=== PATIENT | male | born 2000 | race Caucasian/White ===

== ENCOUNTER 2023-05-12 02:52 | Emergency (ER) | payer BC ==
[2023-05-12] MEDS ORDERED: Cyclobenzaprine 10 MG Tab PO ONE (04:23)
[2023-05-12] MEDS ORDERED: Ketorolac 30 MG/ML SDV IM ONE (04:23)
[2023-05-12] MEDS ORDERED: Lidocaine 4% 1 each Patch TOP STA (05:22)
== END 2023-05-12 06:39 | disposition home or self-care (01) ==
LOC: MW.ED 02:52
DX: M54.6 Pain in thoracic spine (principal); Z88.5 Allergy status to narcotic agent
CPT/HCPCS: 96372; 99283; A9270; J1885; J3360

== ENCOUNTER 2024-03-01 12:03 | Emergency (ER) | payer SELFPAY ==
[2024-03-01] MEDS: Ondansetron 4 MG/2 ML SDV IVPUSH STA (12:44)
[2024-03-01] MEDS: Sodium Chloride 0.9% 1,000 ML IV STA (12:44)
[2024-03-01] MEDS: Ampicillin/Sulbactam Na 3 GM in Sodium Chloride 0.9% 100 ML IV STA (12:44)
[2024-03-01] MEDS: Ketorolac 30 MG/ML SDV IVPUSH STA (12:44)
[2024-03-01 12:46] LABS: BASOPHILS ABSOLUTE AUTO 0.03 K/uL (0.00-0.20); BASOPHILS PERCENT AUTO 0.2 % (0.0-1.0); EOSINOPHILS ABSOLUTE AUTO 0.05 K/uL (0.00-0.45); EOSINOPHILS PERCENT AUTO 0.3 % (0.0-6.0); HEMATOCRIT 44.2 % (42.0-52.0); HEMOGLOBIN 15.7 g/dL (14.0-18.0); IMMATURE GRAN ABSOLUTE AUTO 0.06 K/uL (0.00-0.05); IMMATURE GRAN PERCENT AUTO 0.4 % (0.0-0.4); LYMPHOCYTES ABSOLUTE AUTO 0.94 K/uL (1.00-4.80); LYMPHOCYTES PERCENT AUTO 5.7 % (24.0-44.0); MEAN CORPUSCULAR HEMOGLOBIN 30.5 pg (28.0-32.0); MEAN CORPUSCULAR HGB CONC 35.5 g/dL (32.0-36.0); MEAN PLATELET VOLUME 8.8 fL (9.4-12.4); MONOCYTES ABSOLUTE AUTO 0.86 K/uL (0.00-0.80); MONOCYTES PERCENT AUTO 5.2 % (0.0-8.0); NEUTROPHILS PERCENT AUTO 88.2 % (41.0-71.0); PLATELET COUNT,PLT 288 K/uL (150-400); RED BLOOD CELL COUNT 5.14 M/uL (4.52-5.90); WHITE BLOOD CELL COUNT,WBC 16.44 K/uL (3.9-11.3)
[2024-03-01 13:20] LABS: ALBUMIN 4.1 g/dL (3.4-5.0); CALCIUM 9.1 mg/dL (8.5-10.1); CARBON DIOXIDE,CO2 25.8 mmol/L (21.0-32.0); EST CRCL DRUG DOSING (CG) 126.1 mL/min; POTASSIUM,K 3.7 mmol/L (3.5-5.1); PROTEIN TOTAL,TP 8.1 g/dL (6.4-8.2)
[2024-03-01 13:23] LABS: LACTIC ACID 1.1 mmol/L (0.4-2.0)
[2024-03-01] MEDS: Iopamidol 755 MG/ML 500 ML Multipack Bottle IVPUSH STA (17:51)
== END 2024-03-01 16:15 ==
LOC: MW.ED 12:03
DX: J36 Peritonsillar abscess (principal); J03.90 Acute tonsillitis, unspecified; Z75.8 Other problems related to medical facilities and other health care; Z88.5 Allergy status to narcotic agent
CPT/HCPCS: 36415; 70491; 80053; 83605; 83690; 85025; 86308; 87040; 96361; 96365; 96375; 99284; J0295; J1100; J1885; J2405; J3490; J7030; Q9967; 99285